=== PATIENT | female | born 1970 | race Caucasian/White ===

== ENCOUNTER → 2023-12-16 15:38 | Outpatient (REF) | payer OTHER, SELFPAY | LOC: WDC 15:38 | PROVIDERS: ATTENDING PHYSICIAN Family Medicine | DX: Z12.31 Encounter for screening mammogram for malignant neoplasm of breast (principal) | CPT/HCPCS: 77063; 77067 ==

== ENCOUNTER 2025-01-09 13:16 | Emergency (ER) | payer OTHER, SELFPAY ==
[2025-01-09] VITALS (7 sets, daily range): BP systolic 139–196; BP diastolic 89–102; BMI 23.0
[2025-01-09 13:44] LABS: % Basophils 0.7 % (0-2); % Eosinophils 1.1 % (0-6); % Immature Granulocytes 0.2 % (0-0.5); % Lymphocytes 27.7 % (20.5-51.1); % Monocytes 6.8 % (1.7-9.3); % Neutrophils 63.5 % (42.2-75.2); Absolute Eosinophils 0.1 10^3/uL (0-0.7); Absolute Lymphocytes 1.2 10^3/uL (1.2-3.4); Absolute Monocytes 0.3 10^3/uL (0.1-0.6); Absolute Neutrophils 2.8 10^3/uL (1.4-6.5); Hematocrit 39.7 % (37.0-47.0); Hemoglobin 13.3 g/dL (12.0-16.0); Mean Corp Hgb Conc. 33.5 g/dL (33.0-37.0); Mean Corpuscular Hgb 28.7 pg (27.0-31.0); Mean Corpuscular Volume 85.7 fL (81.0-99.0); Mean Platelet Volume 9.4 fL (7.4-10.4); Nucleated Red Blood Cells % 0 %; Platelet Count 196 10^3/uL (130-400); Red Blood Cell Count 4.63 10^6/uL (4.20-5.40); Red Cell Dist. Width 12.8 % (11.5-14.5); White Blood Cell Count 4.4 10^3/uL (4.8-10.8)
[2025-01-09 14:07] LABS: ALT (SGPT) 24 U/L (0-35); AST (SGOT) 24 U/L (14-36); Albumin 5.2 g/dl (3.5-5.0); Alkaline Phosphatase 66 U/L (38-126); Blood Urea Nitrogen 6 mg/dl (7-17); Calcium 9.7 mg/dl (8.4-10.2); Carbon Dioxide 25 mmol/L (22-30); Chloride 106 mmol/L (98-107); Glucose 104 mg/dl (70-99); Potassium 4.1 mmol/L (3.5-5.1); Sodium 141 mmol/L (135-145); Total Bilirubin 0.7 mg/dl (0.2-1.3); Total Protein 8.1 g/dl (6.3-8.2); eGFR > 60.00
[2025-01-09 14:14] LABS: Troponin I < 0.012 ng/ml
--- NOTE | 2025-01-09 16:43 | ED.GENMED ---
History of Present Illness
General
Chief Complaint: Blood Pressure Problem
Source: patient
Exam Limitations: none
Time Seen by Provider: 01/09/25 16:35
Nursing documentation reviewed up to this point in time: agreed with
History of Present Illness
History of Present Illness:
TIME OF INITIAL EVALUATION
-16:52
REVIEW OF OLD RECORDS
- No prior records
CHIEF COMPLAINT(S)
Hypertension
HISTORY OF PRESENT ILLNESS
The patient is a 54-year-old female with a history of hypertension, presenting with elevated blood pressure over the last two days. She reports that she was diagnosed with hypertension in November of this year and has been compliant with antihypertensive
medication prescribed by his primary care physician, which initially controlled her blood pressure. She was placed on diltiazem 120 mg daily. She apparently was seen by her primary care provider about 1 week ago for follow-up where her blood
pressure remained improved and she was told to continue medication as initially prescribed
The patients blood pressure reading at home yesterday was reported as 200/105 mmHg. Along with the elevated blood pressure, she experienced multiple intermittent symptoms including a strange sensation in her jaw, tingling in her left arm, burning
sensations in her left breast, lightheadedness and a mild headache. She denies any exertional component to symptoms or chest pain, shortness of breath, severe headache, or vision changes. She denies any tearing back pain or extremity weakness. She
was seen in urgent care earlier today where given elevated blood pressure was sent to the emergency department via EMS.
ADDITIONAL HISTORY OBTAINED FROM SOURCES OTHER THAN THE PATIENT
According to a family member, the patients new medication has not improved her condition, and he feels the current medication is making things worse
SOCIAL HISTORY
The patient denies smoking and drug use. She reports no recent changes in her diet and states she is physically active
MEDICATIONS
The patients recently started diltiazem 120 mg daily by her primary care provider
PHYSICAL EXAM
- Vitals: Hypertensive, otherwise vital signs stable. Afebrile
- General: Well appearing in no distress
- HEENT: Pupils equal round reactive light bilaterally. Extraocular muscles intact bilaterally. Moist oral mucosa
- Cardiovascular: No murmurs, normal heart rate, regular rhythm, No chest wall tenderness. 2+ palpable radial pulses bilaterally
- Pulmonary: No respiratory distress, breath sounds are clear and equal
- Abdomen: Soft with no peritoneal signs, no tenderness
- Neurologic: Alert and oriented x 3. Excellent strength all extremities, no coordination deficits. No facial droop or asymmetry. Sensation intact
- Psychiatric: Appropriate mental status, normal insight and judgement
- Extremities: Nontender, no edema, moves all extremities equally
- Skin: No rash, no lesions
DIFFERENTIAL DIAGNOSIS
The Differential Diagnosis includes, in no particular order and is not limited to:
1. Hypertensive urgency/emergency
2. Drug-induced hypervolemia
3. Atypical myocardial ischemia
4. Peripheral edema secondary to medication
5. Transient ischemic attack
6. Anxiety-induced hypertension
7. Hypersensitivity to antihypertensive medication
8. Electrolyte abnormality
9. Cardiac arrhythmia
10. Drug-related adverse effects
EKG
- Normal sinus rhythm, 62 bpm, no acute ischemic changes or evidence of arrhythmia
LABS
- CBC reveals mild leukopenia, chemistry without clinically significant abnormalities, troponin undetectable
UPDATE
- On reassessment - BP has decreased to 150s/90s without intervention. No evidence of end organ damage. Her headache has resolved without treatment, as well - do not feel CT imaging of head indicated. Discussed w/ patients primary care provider who
recommended increased diltiazem to 180mg QD. She will follow-up with her in office later this week.
SUMMARY OF ENCOUNTER
The patient presented to the emergency department with elevated blood pressure. Lab results and an EKG were obtained, which showed no evidence of end organ damage. While the patients blood pressure remained elevated, it did not require emergency
intravenous medication. The primary care physician was consulted, and it was decided to increase the dose of the patients current antihypertensive medication, specifically a calcium channel cal, from 120 mg to 180 mg.
DISPOSITION
The patient is stable and being discharged with a follow-up plan to monitor blood pressure at home and follow up with their primary care physician.
ASSESSMENT
Elevated blood pressure without acute end-organ damage.
MEDICATION RECONCILIATION
- Prescribed: Increased dose of calcium channel cal to 180 mg once daily.
MEDICAL DECISION MAKING
1. Number & Complexity of Problems: Chronic hypertension with currently elevated blood pressure.
2. Data Reviewed:
- Category 1: Labs and EKG were reviewed, showing no acute issues.
- Category 3: Discussion with the primary care physician about medication management.
3. Risk: Consideration of potential admission was made given the elevated readings, but stable examination and test results confirmed that outpatient management with medication adjustment was appropriate.
FOLLOW-UP INSTRUCTIONS
The patient is advised to monitor their blood pressure daily, continue following up with their primary care physician, and contact them in the case of significant changes in blood pressure or symptoms.
PATIENT EDUCATION AND COUNSELING
Informed about signs of stroke and advised to seek immediate emergency care if any severe headache, vision changes, or neurologic symptoms occur.
PATHOLOGIES TO CONSIDER
Consider hypertensive emergency and stroke if symptoms such as severe headache, vision changes, or neurologic deficits develop.
Review of Systems
Review of Systems
Allergies reviewed?: Yes
All Other Systems: ROS reviewed and negative except as documented in HPI and ROS
Phy Exam
Physical Exam
Physical Exam:
See HPI
Course
Orders/Labs/Results
Orders:
Orders
01/09/25 13:17
Electrocardiogram (*1) Urgent
Reason for Study: Hypertension, Benign
EKG- Treatment ONCE
01/09/25 13:35
Complete Blood Count/With Diff Urgent
Comprehensive Metabolic Panel Urgent
Troponin I Urgent
Abnormal Lab Results
01/09/25
13:35
WBC 4.4 L 10^3/uL
(4.8-10.8)
BUN 6 L mg/dl
(7-17)
Glucose 104 H mg/dl
(70-99)
Albumin 5.2 H g/dl
(3.5-5.0)
01/09/25 13:35
01/09/25 13:35
Vital Signs
Blood pressure: 157/91
Initial and Last Documented VS:
Initial Vital Signs
Temp Pulse Resp Pulse Ox
98.3 F 84 18 98
01/09/25 13:23 01/09/25 13:23 01/09/25 13:23 01/09/25 13:23
Last Documented Vital Signs
Temp Pulse Resp BP Pulse Ox
98.4 F 68 18 139/94 98
01/09/25 18:23 01/09/25 18:23 01/09/25 18:23 01/09/25 18:23 01/09/25 18:23
*Pulse Oximetry
SaO2: 98
Oxygen Mode of Delivery: Room air
Patient hypoxic: no
*EKG
Interpreted by ED Provider?: Yes
EKG Intrepretation Date: 01/09/25
Interpretation: normal
Comparison EKG: no comparison EKG present
Heart Rate: 62
Rate: normal
Rhythm: sinus
[place]: normal axis
Interval: normal QT interval
QRS Pattern: normal QRS
Ischemia: no ischemia
*Swaging Machine Adjuster Interpretation
Rate: Swaging Machine Adjuster- N/A
*Critical Care Note
Total Time (30-74mins, 75-104mins- exclusive of procedures): Not Applicable
Patient Management
Discussion with other providers: PCP (Discussed with patient's primary care provider Dr. Platt)
ED Attending Note
-
Portions of this chart may have been created with voice recognition software.� Occasional wrong word or��sound alike� substitutions may have occurred due to the inherent limitations of voice recognition software.
Discharge Plan
Departure
Patient Disposition: Home (Routine Discharge)
Date of Disposition: 01/09/25
Time of Disposition: 17:45
Patient with high blood pressure during this ER visit?: Yes
Condition: Good
Covid-19: Not Applicable
Discharge Problem:
Hypertension
Instructions: High Blood Pressure (DC), BLOOD PRESSURE
Prescriptions:
New
diltiazem HCl [Cardizem CD] 180 mg capsule,extended release 24hr
180 mg PO DAILY Qty: 30 0RF
Referrals:
Brenna Platt MD [Family Provider, Family Practice] - Tomorrow
Activity Restrictions/Additional Instructions:
RETURN TO THE EMERGENCY DEPARTMENT WITH ANY SIGNIFICANTLY ELEVATED BLOOD PRESSURE ASSOCIATED WITH HEADACHE, SEVERE BACK PAIN, CHANGES IN VISION, CHANGES IN MENTAL STATUS, NUMBNESS/TINGLING OR WEAKNESS IN EXTREMITIES, DIFFICULTY AMBULATING,
DIFFICULTIES WITH SPEECH, CHEST PAIN OR SHORTNESS OF BREATH, OR ANY OTHER CONCERNS
- As discussed�your lab work showed no acute abnormalities. Your blood pressure did decrease while in the emergency department.
- I did speak with your primary care provider who recommends that if your blood pressure stays elevated you increase your diltiazem to 180 mg once a day. I did send this new prescription to your pharmacy.
- Continue to take your blood pressure once daily and follow with your primary care provider. Please contact her tomorrow for further evaluation
Monitor your symptoms closely and return to the emergency department with any acute worsening/new symptoms or any other concerns
Interventions
Interventions:
*Risk Screen - Suicide Last Done: 01/09/25 16:50
*General Assessment Last Done: 01/09/25 16:46
*Neglect/Abuse Screening Last Done: 01/09/25 16:46
*ED- Fall Risk Assessment Last Done: 01/09/25 16:46
*ED COVID-19 Vaccine History Last Done: 01/09/25 16:46
*Nursing Disposition Last Done: 01/09/25 18:23
ED- Cardiac Assessment Last Done: 01/09/25 16:46
ED- Neurological Assessment Last Done: 01/09/25 16:46
ED- Pulmonary Assessment Last Done: 01/09/25 16:46
Discharge Date and Time
Discharge Date/Time: 01/09/25 18:24
Print Language: [facility] [place]
--- NOTE | 2025-01-09 18:21 | EDRN ---
Reviewed discharge instructions with patient. Verbalized understanding. Ambulated with steady gait to the lobby.
== END 2025-01-09 18:24 | disposition home or self-care (01) ==
LOC: EMR 13:16
PROVIDERS: Student in an Organized Health Care Education/Training Program; EMERGENCY PHYSICIAN Emergency Medicine; FAMILY PHYSICIAN Family Medicine
DX: I10 Essential (primary) hypertension (principal)
CPT/HCPCS: 99283; 80053; 84484; 85025; 93005

== ENCOUNTER → 2025-04-27 07:04 | Outpatient (REF) | payer OTHER, SELFPAY | LOC: RAD 07:04 | PROVIDERS: ATTENDING PHYSICIAN Specialist; FAMILY PHYSICIAN Family Medicine | DX: I10 Essential (primary) hypertension (principal) | CPT/HCPCS: 93975 ==

== ENCOUNTER → 2025-05-22 12:26 | Outpatient (REF) | payer OTHER, SELFPAY | LOC: WDC 12:26 | PROVIDERS: ATTENDING PHYSICIAN Family Medicine | DX: Z12.31 Encounter for screening mammogram for malignant neoplasm of breast (principal) | CPT/HCPCS: 77063; 77067 ==